=== PATIENT | female | born 1990 | race African-American/Black ===

== ENCOUNTER 2020-12-26 15:41 | Emergency (ER) | payer OTHER ==
[~2020-12-26] VITALS: Ht 154.9 cm; Wt 59.0 kg
[2020-12-26] MEDS ORDERED: IBUPROFEN 600MG TABLET PO ONE (17:45)
[2020-12-26 19:16] VITALS: BP 120/78
== END 2020-12-26 19:17 | disposition home or self-care (01) ==
LOC: ER 15:41
DX: M25.532 Pain in left wrist (principal); M25.531 Pain in right wrist; J45.909 Unspecified asthma, uncomplicated; Z88.0 Allergy status to penicillin
CPT/HCPCS: 72100; 73110; 99284